=== PATIENT | male | born 1960 | race Caucasian/White ===

== ENCOUNTER 2018-06-15 14:56 | Emergency (ER) | payer BC ==
[2018-06-15] MEDS ORDERED: Lidocaine 1% PF 5 ML VIAL ONE (15:12)
--- NOTE | 2018-06-15 15:43 | RAD ---
LEFT HAND 3 VIEWS: Date: 06/15/18 HISTORY: Injury to hand. Laceration to hand. FINDINGS/IMPRESSION: Mild degenerative changes of the first carpometacarpal and mild degenerative change at the first MCP and IP joints. No acute fracture identified. POS: [facility]
== END 2018-06-15 16:53 | disposition home or self-care (01) ==
LOC: ERS 14:56
DX: S61.412A Laceration without foreign body of left hand, initial encounter (principal); I10 Essential (primary) hypertension; F17.220 Nicotine dependence, chewing tobacco, uncomplicated; W45.8XXA Other foreign body or object entering through skin, initial encounter
CPT/HCPCS: 12002; 99406; J2001

== ENCOUNTER 2018-12-11 09:45 | Day surgery (SDC) | payer BC ==
[2018-12-11] MEDS ORDERED: Sodium Chloride 0.9% 20 ML ONE (09:58)
[2018-12-11] MEDS ORDERED: Furosemide 20 MG/2 ML VIAL SLOW IVP SCH (10:45)
[2018-12-11 18:27] VITALS: BP 158/82; TEMP 98.2
== END 2018-12-11 18:27 | disposition home or self-care (01) ==
LOC: ONC/OP 09:45
PROVIDERS: ATTEND Internal Medicine
PROC: 30233N1 Transfusion of Nonautologous Red Blood Cells into Peripheral Vein, Percutaneous Approach (ICD-10-PCS; principal; 2018-12-11)
DX: D50.9 Iron deficiency anemia, unspecified (principal)
CPT/HCPCS: 36430; 86850; 86900; 86901; 96374; J1940; P9016